=== PATIENT | male | born 1970 | race Caucasian/White ===

== ENCOUNTER 2019-02-17 03:03 | Emergency (ER) | payer BC, OTHER ==
[~2019-02-17] VITALS: Ht 182.9 cm; Wt 91.6 kg
--- NOTE | 2019-02-17 03:20 | NUR ---
PT AAOX4. AMBULATORY. 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 PLACED ON MONITOR AND PULSE OX. AWAITING MD FOR EVAL.
--- NOTE | 2019-02-17 03:21 | NUR ---
URINE COLLECTED AND SENT TO LAB
[2019-02-17] MEDS ORDERED: IV NS 0.9% 1,000 ML BAG IV ONE (04:00)
[2019-02-17] MEDS ORDERED: ONDANSETRON HCL/PF 4 MG/2 ML VIAL IVP ONE (04:00)
[2019-02-17] MEDS ORDERED: KETOROLAC TROMETHAMINE INJ 30 MG/ML VIAL IV ONE (04:00)
[2019-02-17] MEDS ORDERED: ONDANSETRON HCL/PF 4 MG/2 ML VIAL ONE (04:10)
[2019-02-17] MEDS ORDERED: KETOROLAC TROMETHAMINE INJ 30 MG/ML VIAL ONE (04:10)
--- NOTE | 2019-02-17 04:35 | NUR ---
Patient discharged to home in stable condition. Rx and Written and verbal after care instructions given. Patient verbalizes understanding of instruction.
[2019-02-17 04:36] VITALS: BP 104/63
== END 2019-02-17 04:36 | disposition home or self-care (01) ==
LOC: ER 03:04
DX: R14.0 Abdominal distension (gaseous) (principal); F17.200 Nicotine dependence, unspecified, uncomplicated
CPT/HCPCS: J1885; J2405; J7030

== ENCOUNTER 2022-02-16 09:28 | Emergency (ER) | payer BC ==
[~2022-02-16] VITALS: Ht 182.9 cm; Wt 81.6 kg
--- NOTE | 2022-02-16 09:55 | NUR ---
DR ROSADO AT BEDSIDE FOR EVAL
[2022-02-16] MEDS ORDERED: PETR368J TP (10:00)
[2022-02-16 10:06] VITALS: BP 104/70
--- NOTE | 2022-02-16 10:07 | NUR ---
Patient discharged to home in stable condition. Written and verbal after care instructions given. Patient verbalizes understanding of instruction. Prescription given.
== END 2022-02-16 10:07 | disposition home or self-care (01) ==
LOC: ER 09:31
DX: R21 Rash and other nonspecific skin eruption (principal); Z60.2 Problems related to living alone

== ENCOUNTER 2022-11-28 10:33 | Emergency (ER) | payer BC, OTHER ==
[~2022-11-28] VITALS: Ht 182.9 cm; Wt 99.8 kg
[~2022-11-28 10:33] MED LIST: PETR368J TP
[2022-11-28] MEDS ORDERED: IBUP-1955 PO (11:38)
[2022-11-28] MEDS ORDERED: DOXY100C2 PO (11:38)
[2022-11-28 11:46] VITALS: BP 107/74; TEMP 98; O2SAT 95
== END 2022-11-28 11:46 | disposition home or self-care (01) ==
LOC: ER 10:55
DX: J06.9 Acute upper respiratory infection, unspecified (principal); Z60.2 Problems related to living alone
CPT/HCPCS: 71045-TC